=== PATIENT | female | born 2000 ===

== ENCOUNTER 2024-11-27 06:01 | Day surgery (SDC) | payer OTHER ==
[2024-11-20 10:34] LABS: BASO % 0.2 % (0.1-1.2); EOS # 0.04 (0.04-0.54); EOS % 0.5 % (0.7-7.0); HEMOGLOBIN 13.3 g/dL (11.2-15.7); LYMPH # 1.47 (1.18-3.74); LYMPH % 17.5 % (19.3-53.1); MEAN CORPUSCULAR HEMOGLOBIN 29.9 pg (25.6-32.2); MONO # 0.48 (0.24-0.82); MONO % 5.7 % (4.7-12.5); NEUT # 6.38 (1.56-6.13); NEUT % 75.9 % (34.0-71.1); PLATELET COUNT 196 K/uL (163-369); RED BLOOD COUNT 4.45 M/uL (3.93-5.22); RED CELL DISTRIBUTION WIDTH 11.7 % (11.6-14.4)
[2024-11-20 11:00] LABS: INR 0.97; PROTHROMBIN TIME 10.6 SECONDS (9.0-11.5)
[2024-11-20 11:04] VITALS: BP 113/71
[2024-11-20 11:18] LABS: URINE APPEARANCE Clear; URINE BILIRRUBIN Negative (NEGATIVE); URINE BLOOD Negative; URINE COLOR Yellow; URINE GLUCOSE Negative (NEGATIVE); URINE KETONE Negative (NEGATIVE); URINE LEUKOCYTE Trace; URINE NITRATE Negative; URINE PROTEIN Negative (NEGATIVE); URINE UROBILINOGEN 0.2 E.U./dl
[2024-11-20 11:23] LABS: URINE BACTERIA 4159.1 uL (0.0-1933); URINE EPITHELIAL CELLS 88.5 uL (0.0-38.8); URINE RBC 29.1 uL (0.0-20.8); URINE WBC 27.2 uL (0.0-23.2)
[2024-11-20 11:52] LABS: CALCIUM 9.4 mg/dL (8.5-10.1); CREATININE SERUM 0.69 mg/dL (0.55-1.02); GFR 103.66; POTASSIUM 4.31 mEq/L (3.5-5.1)
[~2024-11-27] VITALS: Ht 167.6 cm; Wt 72.6 kg
[2024-11-27] MEDS ORDERED: NEURONTIN300 MG PO (07:51)
[2024-11-27] MEDS ORDERED: TYLENOL ARTHRI650 MG PO (07:51)
[2024-11-27] MEDS ORDERED: KETO10TA2 PO (07:51)
[2024-11-27] MEDS ORDERED: TRAMADOL HCL50 MG PO (07:51)
[2024-11-27] MEDS ORDERED: MIRALAX17 GM PO (07:51)
[2024-11-27] MEDS ORDERED: CEFAZOLIN SODIUM 1,000 MG VIAL ONE (08:25)
[2024-11-27] MEDS ORDERED: BUPIVACAINE HCL/MPF 0.5% 30ML VIAL ONE (09:05)
[2024-11-27] MEDS ORDERED: LIDOCAINE HCL 1%/EPINEPHRINE 20ML VIAL IJ ONE (09:05)
[2024-11-27] MEDS ORDERED: KETOROLAC TROMETHAMINE 30 MG VIAL ONE (10:10)
[2024-11-27] MEDS ORDERED: ISOPROPYL ALCOHOL 30 ML OUNCE TOP ONE (10:45)
[2024-11-27] MEDS ORDERED: RACEPINEPHRINE HCL 0.5 ML AMPUL IH ONE ×5 (11:38→13:00)
[2024-11-27] MEDS ORDERED: MORPHINE SULFATE 4 MG/ML VIAL IV ONE (14:30)
[2024-11-27] MEDS ORDERED: PHENOL 177 ML BOTTLE MM ONE (14:45)
== END 2024-11-27 17:15 | disposition home or self-care (01) ==
LOC: CIR.AMB 06:01
PROVIDERS: ATTEND Surgery
DX: K42.0 Umbilical hernia with obstruction, without gangrene (principal); Z88.8 Allergy status to other drugs, medicaments and biological substances
CPT/HCPCS: 49594; C1781